=== PATIENT | male | born 1945 | race Caucasian/White ===

== ENCOUNTER → 2020-04-27 | Outpatient (CLI) | payer MEDICARE, OTHER ==
[~2020-04-27] MED LIST: ADULT LOW DOSE81 MG PO; CARVEDILOL3.125 MG PO; CRESTOR20 MG PO; EFFIENT10 MG PO; ELAVIL; LEVITRA20 MG PO; LISINOPRIL10 MG PO; NITROGLYCERIN0.4 MG SL; SPIRONOLACTONE50 MG PO
== END ==
LOC: M.ULTRA 12:37
PROVIDERS: ATTEND Nurse Practitioner Family
DX: M79.604 Pain in right leg (principal); M79.605 Pain in left leg

== ENCOUNTER → 2020-12-25 | Outpatient (CLI) | payer MEDICARE, OTHER ==
--- NOTE | 2020-12-25 14:07 | CARDNUC ---
[place] [address] CARDIAC NUCLEAR IMAGING REPORT Name: TALON GEORGE Room: [facility]#: [id number] Admission: 12/25/20 Attend Phys: Glenn Hicks, Discharge: Date of : 47 Date of Service: 12/25/20 1407 Report #: [id number] THIS REPORT FOR: cc: Arpit Lam John E. DO Liston, Michael J. MD [facility] ~ APPROVED REPORT Imaging Protocol: Rest Tc-99m/Stress Tc-99m 1 day Study performed: 12/25/2020 08:41:36 Indication: CAD Patient Location: Out-Patient Stress Tech: Mercedes Bland Stress Nurse: Fidelina Freitas RN NM Tech:MITZI Delvalle Ht: 5 ft 9 in Wt: 217 lbs BSA: 2.14 m2 HR: 62 bpm BP: 141/92 mmHg BMI: 32.04 Rhythm: NSR Medical History Medical History: SOB, Hyperlipidemia, HTN, CAD s/p stent Medications: Aspirin, Lisinopril, Metoprolol, Nitroglycerin, Rosuvastatin Allergies: Atorvastatin Cardiac Risk Factors: Age, Tobacco History (Former), HTN, , Hyperlipidemia, FHX of CAD Previous Cardiac Procedures: PCI Pretest Chest Pain Characteristics: No chest pain Physical Disabilities: N/A Meds Held (24 hrs): Metoprolol Meds Held (48 hrs): N/A Resting Data Rest SPECT myocardial perfusion imaging was performed in supine position 30 minutes following the intravenous injection of 11.0 mCi of Tc-99m Sestamibi. Time of rest injection: 0730 Date: 12/25/2020 The images were gated to evaluate regional wall motion and calculate left ventricular ejection fraction. Administration Route: IV Administration Site: [place] [address] CARDIAC NUCLEAR IMAGING REPORT Name: TALON GEORGE Room: [facility] STEPHON Reinoso#: [id number] Admission: 12/25/20 Attend Phys: Glenn Hicks, Discharge: Date of : 47 Date of Service: 12/25/20 1407 Report #: [id number] Pharmacologic Stress Pharmacologic stress test was performed by injecting Regadenoson 0.4 mg IV push over 10-15 seconds immediately followed by the intravenous injection of 35.8 mCi of Tc-99m Sestamibi. Time of stress injection: 839 Date: 12/25/2020 Administration Route: IV Administration Site: Right Gated Stress SPECT was performed 40 minutes after stress injection. The images were gated to evaluate regional wall motion and calculate left ventricular ejection fraction. Prone imaging was performed. Stress Test Details Stress Test: Pharmacologic stress testing performed using 0.4 mg of regadenoson per 5 mL given IV over 10 seconds. Reason for pharmacologic stress test: HTN. HR Max Heart Rate (APMHR): 146 bpm Resting HR: 62 bpm Target HR (85% APMHR): 124 bpm Max HR Achieved: 83 bpm % of APMHR: 56 Recovery HR: 72 bpm BP Resting BP: 141/92 mmHg Max BP: 147/77 mmHg Recovery BP: 144/78 mmHg ECG Resting ECG: Sinus Rhythm Stress ECG: Sinus Rhythm ST Change: None Arrhythmia: None Recovery ECG: Sinus Rhythm Recovery ST Change: None Recovery Arrhythmia: None Clinical Reason for Termination: Completed protocol Stress Symptoms: Dyspnea, Dizziness The patient tolerated Lexiscan infusion without significant cardiac symptoms. Nurse Comments Pt reported mild dizziness one [place] [address] CARDIAC NUCLEAR IMAGING REPORT Name: TALON GEORGE Room: [facility]#: [id number] Admission: 12/25/20 Attend Phys: Glenn Hicks, Discharge: Date of : 47 Date of Service: 12/25/20 1407 Report #: [id number] and "very mild" SOA at four minute shayy. All s/s had completely resolved by test completion. Stress ECG Conclusion The baseline twelve-lead EKG shows sinus rhythm without significant ST segment or T wave abnormality. EKGs obtained during and post Lexiscan infusion show sinus rhythm with no significant ST segment or T wave changes when compared to baseline. There were no stress-induced arrhythmias. Study Quality Study: Good Artifact: No artifact Study Data At rest, the left ventricular ejection fraction was 64%.. Post stress, the left ventricular ejection was 70%.. TID = 0.91. Perfusion Perfusion images obtained at rest and post Lexiscan stress show uniform uptake of the radioisotope throughout the myocardium. There were no defects to suggest infarct or ischemia. Wall Motion Normal left ventricular wall motion. Nuclear Conclusion ECG Findings: negative for ischemia Clinical Findings: negative for ischemia Nuclear Findings: negative for ischemia Exercise Capacity: not assessed Left Ventricular Function: normal Risk Study: low Perfusion images show no defect to suggest infarct or ischemia. Left ventricular systolic function appears normal on gated studies. This is a low risk study. <Conclusion> The baseline twelve-lead EKG shows sinus rhythm without significant ST segment or T wave abnormality. EKGs obtained during and post Lexiscan infusion show sinus rhythm with no significant ST [place] [address] CARDIAC NUCLEAR IMAGING REPORT Name: TALON GEORGE Room: [facility]#: [id number] Admission: 12/25/20 Attend Phys: Glenn Hicks, Discharge: Date of : 47 Date of Service: 12/25/20 1407 Report #: [id number] T wave changes when compared to baseline. There were no stress-induced arrhythmias. <ELECTRONICALLY SIGNED> By: Glenn Hicks MD, FACC 12/25/201406 06 06 lGenn Hicks MD, FACC /INF
== END ==
LOC: M.RAD 12-11 14:58 → M.NUC 08:00
PROVIDERS: ATTEND Internal Medicine Cardiovascular Disease
DX: J84.89 Other specified interstitial pulmonary diseases (principal); I25.10 Atherosclerotic heart disease of native coronary artery without angina pectoris